=== PATIENT | female | born 1995 | race Caucasian/White ===

== ENCOUNTER → 2020-09-11 20:08 | Outpatient (ROUT) | payer OTHER, MEDICAID, SELFPAY ==
[2020-09-11 21:49] LABS: GTT (PREG) 1 Hour PP 50gm Dose 46 mg/dL (76-139)
[2020-09-14 19:36] LABS: AFP, Serum 23.2 ng/mL (.); Calc Gestational Age Ultrasound (.); Estriol, Free 0.57 ng/mL (.); Inhibin A, Dimeric 188.49 pg/mL (.); Inhibin A, MoM 1.17 (.); Maternal Weight 181 lbs (.); Number of Fetuses No (.); OSBR Risk 1 IN 10000 (.); Results Report (.); Test Results *Screen Negative* (.); hCG, MoM 0.97 (.); hCG, Serum 48758 mIU/mL (.)
== END ==
PROVIDERS: Visit Provider Nurse Practitioner Obstetrics & Gynecology
DX: Z34.90 Encounter for supervision of normal pregnancy, unspecified, unspecified trimester (principal); O99.212 Obesity complicating pregnancy, second trimester; Z36.0 Encounter for antenatal screening for chromosomal anomalies; Z36.1 Encounter for antenatal screening for raised alphafetoprotein level; Z13.1 Encounter for screening for diabetes mellitus; Z3A.15 15 weeks gestation of pregnancy
CPT/HCPCS: 82105; 82677; 82950; 84702; 86336

== ENCOUNTER → 2020-10-15 12:03 | Outpatient (CLI) | payer OTHER, MEDICAID, SELFPAY ==
--- NOTE | 2020-10-15 12:05 | DI.US.S_ITS ---
PROCEDURE: US OB >= 14 WEEKS FETUS INDICATIONS: ANATOMY SCAN OUTSIDE/PRIOR DATING DATA: Last menstrual period (LMP): 05/28/2020. LMP-based estimated date of delivery (SERAFIN): 03/04/2021 . First dating scan (date and location): 10/15/2020 . Estimated date of delivery (SERAFIN) from first dating scan: 03/02/2021 . TECHNIQUE: Real-time scanning was performed of the fetus, with image documentation and biometric measurements. Endovaginal scanning: No COMPARISON: None. FINDINGS: General: A single living intrauterine gestation is present. Presentation: Vertex. Placenta: Placental position is posterior , without previa. Amniotic fluid index: 9.2 cm, normal range is 5-24 cm. heart rate: 153 beats per minute. Maternal cervical canal: 5.5 cm long. Normal lower limit is 2.5 cm. biometrics: Biparietal diameter: 19 weeks 3 days Head circumference: 20 weeks Abdominal circumference: 19 weeks 6 days Femur length: 21 weeks 6 days Estimated gestational age from initial scan: 20 weeks Composite gestational age from present scan: 20 weeks 2 days Estimated weight and percentile: 366 g; 80th percentile Measurement variability for biometric dating: +/- 7 days from 14 weeks to 15 weeks 6 days gestation, +/- 10 days from 16 weeks to 21 weeks 6 days gestation, +/- 2 weeks from 22 weeks to 27 weeks 6 days gestation, +/- 3 weeks for 28 weeks gestation or later. weight reference: 4500 g or EFW >90/95% is considered macrosomia or large for gestational age. EFW <10% is small for gestational age. EFW 5% or less is considered intra-uterine growth restriction. Anatomic survey: Neuro: Ventricles are non-dilated at less than 10 mm. Cisterna magna is normal at 3-11 mm. Cerebellum is normal in size and morphology. Nuchal skin fold: Normal at less than 6 mm between 14-21 weeks gestational age. Face: Nose and lips, facial profile are normal. Spine: No evidence for spina bifida. Heart: Suboptimally visualized. Diaphragm: Diaphragm is intact. Stomach: Left-sided stomach is present. Kidneys: No hydronephrosis. Normal is less than 5 mm in 2nd trimester, less than 7 mm in 3rd trimester. Cord: 3-vessel cord has orthotopic insertion. Bladder: Normal in size. Extremities: All 4 extremities identified. IMPRESSION: 1. Normal interval growth. 2. heart suboptimally visualized; otherwise normal anatomic survey . Follow-up recommended. Dictated by: Froylan WOODRUFF Interpreted: Yenny Schreiber MD on 10/15/2020 at 13:31 Approved by: Yenny Schreiber M.D. on 10/15/2020 at 13:54
== END ==
PROVIDERS: Referring Provider Nurse Practitioner Obstetrics & Gynecology; Visit Provider Nurse Practitioner Obstetrics & Gynecology
DX: Z36.89 Encounter for other specified antenatal screening (principal); Z3A.20 20 weeks gestation of pregnancy
CPT/HCPCS: 76811

== ENCOUNTER → 2020-10-25 14:45 | Outpatient (CLI) | payer OTHER, MEDICAID, SELFPAY ==
--- NOTE | 2020-10-25 14:48 | DI.US.S_ITS ---
PROCEDURE: US OB LIMITED INDICATIONS: HEART NOT WELL VISUALIZED OUTSIDE/PRIOR DATING DATA: Last menstrual period (LMP): 05/28/2020. LMP-based estimated date of delivery (SERAFIN): 03/04/2021 . First dating scan (date and location): 10/15/2020 . Estimated date of delivery (SERAFIN) from first dating scan: 03/02/2021 . TECHNIQUE: Real-time scanning was performed of the fetus, with image documentation and biometric measurements. Endovaginal scanning: No COMPARISON: [facility], OB >= 14 WEEKS FETUS, 10/15/2020, 12:14. FINDINGS: General: A single living intrauterine gestation is present. Presentation: Vertex. Placenta: Placental position is posterior , without previa. Amniotic fluid index: 11.3 cm, normal range is 5-24 cm. heart rate: 153 beats per minute. Maternal cervical canal: 4.4 cm long. Normal lower limit is 2.5 cm. Estimated gestational age from initial scan: 21 weeks 5 days. Normal four-chamber heart. Cardiac outflow tracts not well seen. IMPRESSION: 1. Single living IUP redemonstrated and today's exam demonstrating normal appearance of the four-chamber heart and cardiac outflow tracts are again suboptimally visualized.. Dictated by: Froylan Henry [facility] Interpreted: Yenny Schreiber MD on 10/25/2020 at 15:47 Approved by: Yenny Schreiber M.D. on 10/25/2020 at 16:50
== END ==
PROVIDERS: Referring Provider Nurse Practitioner Obstetrics & Gynecology; Visit Provider Nurse Practitioner Obstetrics & Gynecology
DX: Z36.2 Encounter for other antenatal screening follow-up (principal); Z3A.21 21 weeks gestation of pregnancy
CPT/HCPCS: 76815

== ENCOUNTER → 2020-11-20 07:50 | Outpatient (CLI) | payer OTHER, MEDICAID, SELFPAY ==
[2020-11-20 08:48] LABS: Hematocrit 34.7 % (36-46); Hemoglobin 11.6 g/dL (12.0-16.0); Mean Corpuscular HGB Conc 33.5 % (30-36); Mean Corpuscular Hemoglobin 31.1 PG (26-34); Mean Corpuscular Volume 92.8 fL (80-100); Platelet Count 206 X10^3/uL (150-400); Red Blood Cell Count 3.74 X10^6/uL (4.0-5.2); White Blood Cell Count 13.8 X10^3/uL (4.5-11.0)
[2020-11-20 09:56] LABS: Glucose 1 Hour 122 mg/dL (70-170)
[2020-11-20 10:35] LABS: Glucose Tol Interpretation INTERPRETATION
[2020-11-20 11:19] LABS: Glucose 2 Hour 87 mg/dL (70-140)
[2020-11-20 17:58] LABS: Glucose Fasting 85 mg/dL (70-100)
== END ==
PROVIDERS: Referring Provider Nurse Practitioner Obstetrics & Gynecology; Visit Provider Nurse Practitioner Obstetrics & Gynecology
DX: Z34.90 Encounter for supervision of normal pregnancy, unspecified, unspecified trimester (principal); Z13.1 Encounter for screening for diabetes mellitus; Z3A.26 26 weeks gestation of pregnancy
CPT/HCPCS: 36415; 82951; 82952; 85027

== ENCOUNTER → 2021-02-07 19:08 | Outpatient (ROUT) | payer OTHER, MEDICAID, SELFPAY | PROVIDERS: Visit Provider Nurse Practitioner Obstetrics & Gynecology | DX: Z34.90 Encounter for supervision of normal pregnancy, unspecified, unspecified trimester (principal); Z36.85 Encounter for antenatal screening for Streptococcus B; Z3A.36 36 weeks gestation of pregnancy | CPT/HCPCS: 87081 ==

== ENCOUNTER 2021-03-01 00:36 | Inpatient (IN) | payer OTHER, MEDICAID, SELFPAY ==
--- NOTE | 2021-03-01 00:54 | PM.OBHP.1 ---
OB HPI Date/Time Date of admission: 03/01/21 Date Patient Seen: 03/01/21 Time Patient Seen: 00:45 History of Present Condition Chief complaint: Evalualtion of labor : 2 Para: 1 Estimated Date of Delivery: 03/04/21 Estimated Gestational Age (weeks): 39.4 Narrative: Prisca Zarate is a 25 year old female @ 39w4d by LMP and early US who presents for evaluation of labor. Has been feeling contractions all day that got strong around 9:30pm. No vaginal bleeding or leaking of fluid. Uncomplicated care w/ CNM. Supportive partner is at her side. Desires epidural AMANDO. History of Present care: good care, initiated at week # (5), number of visits (10) and pounds weight gain (-12) Dating criteria: LMP confirmed by 1st trimester US Ultrasounds: normal mid trimester US Obstetrical complications: none Medical complications: none Preadmission Labs Blood type: A (+) positive -: Antibody screen: negative, GBS status: negative, HBsAG: negative, HIV: negative and RPR/VDLR: negative -: Chlamydia screen: not detected and Gonorrhea screen: not detected -: Rubella: immune HCT: 34.7 HCAB: negative Quad screen: Normal Narrative: 2hr gtt: 85/122/87 Prior (ies) History: 09/04/2019: NSVB @ 39w6d, 15hr labor, 7#, male, Hector, no complications Evaluation Evaluation Baseline heart rate: 140 Variability: Moderate (11-25) monitor accelerations: Present Monitor Decelerations: Absent Contraction Frequency (minutes): 3 Uterine Contraction Intensity: Moderate Status: Category l Cervical dilation (cm): 6 Cervical effacement (%): 90 station: -2 PFSH Medical History (Updated 03/01/21 @ 01:05 by Aye Evans CNM) Depression Polycystic ovarian syndrome Surgical History (Updated 03/01/21 @ 01:05 by Aye Evans CNM) Hx of tonsillectomy Social History (Updated 03/01/21 @ 01:06 by Aye Evans CNM) marital status: unmarried,living together number of children: 1 household members: significant other and children lives independently: Yes caregiver/support person: No housing: apartment education level: high school occupational status: unemployed Meds Home Medications and Allergies Home Medications Medication Instructions Recorded Confirmed Type bupropion HCl 150 mg 24 hr tablet, mg PO 03/01/21 History extended release Allergies Allergy/AdvReac Type Severity Reaction Status Date / Time No Known Drug Allergies Allergy Verified 03/01/21 01:07 Review of Systems Review of Systems ROS: Yes All systems reviewed with the patient and are negative except as otherwise documented Exam Vital Signs (past 8 hours): BP 104/70, HR 74bpm, T 36.3C Temporal Chest Chest: normal inspection of the chest Resp Effort & Inspection: normal respiratory effort Auscultation: clear to auscultation bilaterally Cardio Rate: regular rate Rhythm: regular rhythm Heart Sounds: S1 normal and S2 normal Presentation: vertex Objective Labs Result Diagrams: 03/01/21 01:00 Assessment and Plan Assessment and Plan Assessment and Plan narrative: A: Term primipara Active labor Depression- stable on medication No indication for GBS prophylaxis Cat I FHR P: Admit, routine orders. Consulted anesthesia for epidural- will give a dose of Fentanyl as OC Anesthesia provider is currently in the OR. Continuous labor support. Reassess in 4 hours or sooner, PRN.
[2021-03-01 00:55] VITALS: BP 104/70
[2021-03-01] MEDS: LACTATED RINGERS 1,000 ML 100 ML IV ×2 (01:19→04:06)
[2021-03-01] MEDS: fentaNYL 100 MCG/2 ML INJ (01:19)
[2021-03-01 01:53] LABS: Add Manual Diff / Slide Review NO; Basophils Absolute Auto 0 /uL (0-100); Basophils Percent Auto 0.3 % (0-2); Eosinophils Absolute Auto 100 /uL (0-450); Eosinophils Percent Auto 0.7 % (2-4); Hematocrit 33.5 % (36-46); Hemoglobin 11.2 g/dL (12.0-16.0); Lymphocytes Absolute Auto 3100 /uL (1100-4500); Lymphocytes Percent Auto 25.6 % (25-40); Mean Corpuscular HGB Conc 33.5 % (30-36); Mean Corpuscular Hemoglobin 29.6 PG (26-34); Mean Corpuscular Volume 88.4 fL (80-100); Monocytes Absolute Auto 700 /uL (0-900); Monocytes Percent Auto 6.1 % (3-14); Neutrophils Absolute Auto 8200 /uL (1500-7000); Neutrophils Percent Auto 67.3 % (50-75); Platelet Count 190 X10^3/uL (150-400); Red Blood Cell Count 3.79 X10^6/uL (4.0-5.2); Red Cell Distribution Width 13.4 % (11.6-14.8); White Blood Cell Count 12.1 X10^3/uL (4.5-11.0)
[2021-03-01 01:59] LABS: COVID19 - ADMIT (NP swab/PCR) Negative (Negative)
--- NOTE | 2021-03-01 02:29 | P.PCN_ITS ---
Regional Block Pre-procedure Procedure: Continuous Lumbar Epidural for L&D Attending OB provider: Aye Evans PMH/ROS narrative: term labor, no complications Labs: Hct 33.5 % (36-46) L 03/01/21 01:00 Plt Count 190 X10^3/uL (150-400) 03/01/21 01:00 Medications: Current Medications Generic Name Dose Route Start Last Admin Trade Name Freq PRN Reason Stop Dose Admin Calcium Carbonate 1,000 mg 03/01/21 00:50 Calcium Carbonate 500 Mg Tab PO Q2HR PRN Dyspepsia Carboprost Tromethamine 250 mcg 03/01/21 00:50 Carboprost 250 Mcg/Ml Ampul IM Q90M PRN Bleeding Fentanyl 100 mcg 03/01/21 00:50 Fentanyl 100 Mcg/2 Ml Inj IV Q1H PRN Pain, Severe (7-10) Lactated Ringer's 1,000 mls @ 100 mls/hr 03/01/21 01:00 03/01/21 01:19 Lactated Ringers IV 100 mls/hr CONT JOHN Administration Oxytocin/Lactated Ringer's 30 unit in 500 mls @ 200 mls/hr 03/01/21 00:50 Oxytocin Premix IV CONT PRN Bleeding Protocol Tranexamic Acid 1,000 mg/ 100 mls @ 200 mls/hr 03/01/21 00:50 Sodium Chloride IV NOW PRN Bleeding Methylergonovine Maleate 0.2 mg 03/01/21 00:50 Methylergonovine 0.2 Mg Tablet PO Q6HR PRN Heavy Bleeding Methylergonovine Maleate 0.2 mg 03/01/21 00:50 Methylergonovine 0.2 Mg/Ml Vial IM NOW PRN Bleeding Misoprostol 800 mcg 03/01/21 00:50 Misoprostol 200 Mcg Tablet [place] NOW PRN Bleeding Misoprostol 1,000 mcg 03/01/21 00:50 Misoprostol 200 Mcg Tablet [place] NOW PRN Bleeding Misoprostol 400 mcg 03/01/21 00:50 Misoprostol 200 Mcg Tablet SL NOW PRN Bleeding Naloxone HCl 0.2 mg 03/01/21 00:50 Naloxone 0.4 Mg/Ml Vial IV Q2MIN PRN Opiate Reversal Ondansetron HCl 4 mg 03/01/21 00:50 Ondansetron 4 Mg/2 Ml Inj IV Q4HR PRN Nausea And Vomiting Oxytocin 10 unit 03/01/21 00:50 Oxytocin 10 Unit/Ml Vial IM NOW PRN Bleeding Allergies: Allergies Allergy/AdvReac Type Severity Reaction Status Date / Time No Known Drug Allergies Allergy Verified 03/01/21 01:07 Procedure Insertion date: 03/01/21 Insertion time: 02:00 Prep/Local: betadine x3 and 1% lidocaine Interspace: L3-4 Needle: 18 gauge Hustead (CSE: 27g Pencan through Hustead, clear CSF, 0.75mL 0.25% MPF bupiv) Loss of resistance with: saline NAWAF at (cm): 5 Catheter placed at SKIN (cm): 11 Catheter in SPACE (cm): 6 Insertion: No CSF, No Blood, No Paresthesia with insertion, No Paresthesia with injection and No Test dose reaction Initial Medications TEST DOSE: 1.5% lidocaine with epinephrine 1:200k (mL): 3 BOLUS DOSE (mL): 3 BOLUS DOSE med: other (infusate) Infusion INFUSION: 0.125% bupivacaine and with fentanyl 2 mcg/mL Initial rate (mL/hr): 8 Subsequent interventions: approx 0250, 5mL 0.25%, 5mL 2% chloroprocaine, no relief. Block level tested with cold sensation, no block. Catheter secure and at 11cm. Pulled and replaced: Seated, sterile prep/drape with betadine x 3. Lido local skin wheal L4-5, 18g Hustead to clean NAWAF with saline at 5cm, 27g Pencan passed through Hustead, clear CSF, 1mL 0.25% MPF bupivacaine, catheter inserted to 10cm (5cm in space), no paresthesias, no heme. Test dose 3mL 1.5% lido with epi. No reaction. Infusion resumed at 8mL/h. Good analgesia. at 0422 without further int ervention. Post-procedure Anesthesia time START: 01:52 Anesthesia time END: 04:22 Post-procedure Anesthesia Assessment: Yes CV function: HR/BP stable, Yes Resp function: RR/sat/airway adequate, Yes Mental status appropriate and No Anesthesia complications
--- NOTE | 2021-03-01 04:41 | P.PCNOB_ITS ---
Events: Meconium Stained Fluid (noted at the ) Labor & Delivery Delivery date: 03/01/21 Intrapartal Events: None Cervical ripening method: none Induction method: none Delivery augmentation: rupture of membranes Delivery monitor: external FHT and external uterine Route of delivery: L&D Laceration Description: None Estimated blood loss (mL): 450 Anesthesia Type: Epidural Complications: Epidural replaced 1 hour prior to Narrative: Prisca labored well and made steady cervical change. Shortly after achieving complete pain relief with second epidural, Prisca began to feel increasing rectal pressure and was C/C/+2. Coaching to slow effective maternal pushing led to NSVB of a vigorous baby girl in EDIN position over an intact perineum. There was no nuchal cord and the shoulders delivered without additional maneuvers. Challis was placed on maternal abdomen for drying and skin to skin. 30 units of pitocin in 500mL LR was started at 250mL/hr for AMTSL. After cessation of pulsation, the cord was double clamped by CNM and cut by FOB. Gentle cord traction with brisk bleeding led to spontaneous, Schultze delivery of an apparently intact placenta, membranes and 3VC. Fundus immediately firm and bleeding minimal. QBL 450mL. Both mother and baby stable and skin to skin as I left the room. Baby 1: Infant gender: Female Presentation: vertex Position: Left Occiput Anterior Placenta delivery description: Spontaneous Cord Vessel Description: 3 Vessels score (1 min): 8 score (5 min): 9 weight: 2.926 kg Plan for aftercare: Routine care
[2021-03-01] MEDS: KETOROLAC 30 MG/ML VIAL IV (06:30)
[2021-03-01] MEDS: IBUPROFEN 600 MG TABLET PO ×2 (12:18→18:48)
[2021-03-01] MEDS: LANOLIN OINT 7 GM 1 APPLIC TOP (15:44)
[2021-03-01] MEDS: ACETAMINOPHEN 325 MG TABLET 650 MG PO (18:47)
[2021-03-02] MEDS: ACETAMINOPHEN 325 MG TABLET 650 MG PO ×2 (00:47→06:51)
[2021-03-02] MEDS: IBUPROFEN 600 MG TABLET PO ×2 (00:47→06:51)
--- NOTE | 2021-03-02 08:08 | PM.OBDS.1 ---
Discharge Providers Provider Date of admission: 03/01/21 00:36 Discharge Date: 03/02/21 Consults: 03/02/21 04:38 Consult to Rehabilitation Construction Specialist Routine Comment: Discharge provider: Aye Evans CNM Summary Hospital Course Date Patient Seen: 03/02/21 Time Patient Seen: 08:08 Diagnoses: O80.0 (vaginal ) Hospital Course: Prisca is voiding ambulating and independently. Showered and dressed in her own clothes. Tolerating a general diet. Minimal pain is well controlled w/ ibuprofen/Tylenol. Bleeding is light, no clots. Eager for discharge to home today. Partner remains present and supportive. Peripartum Data Infant Delivery Method: Natural Vaginal Laceration Description: None Episiotomy description: None complications: none 1: Gender: Female Disposition of : home Discharge Diagnosis (1) Encounter for full-term uncomplicated delivery: Start Date: 03/01/21 Start Time: 04:22 Status: Acute Status at Discharge Cognitive/behavioral status at discharge: oriented and calm Functional status at discharge: independent ambulation Overall status at discharge: patient is progressing back to baseline Time Spent with Patient Time attestation: Total time spent providing and/or coordinating discharge services: Time spent: Less than 30 minutes Specific discharge activities: pelvic rest x 6 weeks Objective Labs Result Diagrams: 03/01/21 01:00 Exam Vital Signs (past 8 hours): BP 108/71mmHg, HR 74bpm, RR 20/min, T 98.6F Temporal Other: Fundus firm @ U-1, lochia scant Discharge Plan Discharge Plan Patient Disposition: Home Discharge orders & Medications Prescriptions: New ibuprofen 600 mg Tablet 600 mg PO Q6HR PRN (Reason: Pain, Mild (1-3)) 14 Days Qty: 60 RF: 0 Continued bupropion HCl 150 mg tablet extended release 24 hr PO RF: 0 Follow up/Referrals: Aye Evans CNM [Advanced Toxicologist] - (Follow-up 03/15/21 @ 1115 by Telehealth Follow-up 04/12/21 @ 1045 in office) Diet/Activity/Treatments Diet: Regular Activity: pelvic rest x 6 weeks Skin/Wound/Dressing Care Report to your healthcare provider any signs of infection, such as:: chills, fever, increased pain, unusual drainage and unusual redness Visit Report/Discharge Packet Instructions: DI for Depression
[2021-03-02 08:53] VITALS: BP 104/70; PULSE 70; RESP 18; TEMP 36.7
== END 2021-03-02 11:45 | disposition home or self-care (01) | DRG 560 ==
PROVIDERS: Admitting Provider Nurse Practitioner Obstetrics & Gynecology; Referring Provider Nurse Practitioner Obstetrics & Gynecology; Visit Provider Nurse Practitioner Obstetrics & Gynecology
DX: O77.0 Labor and delivery complicated by meconium in amniotic fluid (principal); Z3A.39 39 weeks gestation of pregnancy; Z37.0 Single live birth; Z20.822 Contact with and (suspected) exposure to COVID-19
CPT/HCPCS: 01967; 36415; 59050; 85025; 86850; 86900; 86901; 87635; C9803; J1885; J3010

== ENCOUNTER → 2021-05-19 09:56 | Outpatient (CLI) | payer OTHER, MEDICAID, SELFPAY ==
--- NOTE | 2021-05-19 | DI.US.S_ITS ---
PROCEDURE: US PELVIC COMPLETE INDICATIONS: SPOTTING SINCE VAGINAL DELIVERY IN FEBRUARY TECHNIQUE: Real-time scanning was performed of the pelvic organs, with image documentation. Additional endovaginal scanning was necessary due to incomplete visualization of the adnexal and endometrial structures by transabdominal scanning. COMPARISON: None. FINDINGS: Uterus: Uterus is normal in size at 7.3 x 6.6 x 2.7 cm. The endometrium measures 1-2 mm in combined thickness. Ovaries: Right ovary measures 2.5 x 1.6 x 1.5 cm. There are punctate nonspecific echogenic foci seen within the right ovary. Left ovary measures 3.0 x 1.8 x 1.6 cm and also demonstrates hyperechoic foci measuring up to 8 mm. Other: No pathologic free abdominal or pelvic fluid. IMPRESSION: No specific sonographic criteria for retained products of conception. Nonspecific hyperechoic foci involving both ovaries, technically indeterminate. The clinical significance is unknown. If clinically warranted, continued surveillance with ultrasound could be performed to document stability Dictated by: Nicho Camejo M.D. on 05/19/2021 at 11:35 Approved by: Nicho Camejo M.D. on 05/19/2021 at 11:46
== END ==
PROVIDERS: Referring Provider Nurse Practitioner Obstetrics & Gynecology; Visit Provider Nurse Practitioner Obstetrics & Gynecology
DX: N93.9 Abnormal uterine and vaginal bleeding, unspecified (principal)
CPT/HCPCS: 76830; 76856

== ENCOUNTER 2021-06-19 23:36 | Emergency (ER) | payer OTHER, MEDICAID, SELFPAY ==
--- NOTE | 2021-06-19 23:45 | ED.ALLEREA ---
HPI - Allergic Reaction General Chief complaint: Urogenital-Female Stated complaint: IUD placement, heavy bleeding, severe cramps Time Seen by Provider: 06/19/21 23:37 Source: patient Mode of arrival: Ambulatory Limitations: no limitations History of Present Illness HPI narrative: This is a 26-year-old female comes emergency department with complaint of IUD placement earlier today. She has felt a sharp pain when it was initially placed in his continued to have cramping that feels like a contraction persistent since then. She states the pain is more on the right and midline than on the left. Was about 5:00 p.m. today. Patient has had some bleeding she has gone through 3 panty liner she states not thick pads. This is more bleeding than she was told was expected. She had ibuprofen at 5:00 p.m., she took some Tylenol at 7:00 p.m.. She has continued to have symptoms and came for evaluation. She is 4 months and has a history of PCOS. She is . She is on bupropion but no other daily medications. She has never had an IUD before. She denies any other medical issues. She had a vaginal delivery. She states she has been on control until recently but was having very irregular periods . No fevers. No back or flank pain. No nausea or vomiting. No issues with bowel movements or rectal bleeding. She has not had any dysuria urgency or frequency. She does not appreciate any vaginal discharge. She denies allergies to medications. Related Data Home Medications Medication Instructions Recorded Confirmed bupropion HCl 150 mg 24 hr tablet, mg PO 03/01/21 extended release Allergies Allergy/AdvReac Type Severity Reaction Status Date / Time No Known Drug Allergies Allergy Verified 03/01/21 01:07 Review of Systems Review of Systems ROS Unobtainable: All systems reviewed & are unremarkable except as noted in HPI and below Patient History Medical History Depression Polycystic ovarian syndrome Surgical History Hx of tonsillectomy Social History marital status: unmarried,living together number of children: 1 household members: significant other and children lives independently: Yes caregiver/support person: No housing: apartment education level: high school occupational status: unemployed Smoking Status: Current every day smoker Smoking Status: Current every day smoker Exam Narrative Exam Narrative: GENERAL: Alert and oriented x three, female in mild distress. HEENT: Head normocephalic, atraumatic, EOMI, pupils reactive, face symmetric, moist mucous membranes NECK: Supple, full range of motion CARDIOVASCULAR: Regular rate and rhythm without murmurs, rubs or gallops. RESPIRATORY: Breath sounds equal bilaterally, no wheezes rales or rhonchi. ABDOMEN: Soft, nontender. Normoactive bowel sounds all 4 quadrants. No guarding or rebound, rigidity, no mass : No CVA tenderness Female: external vaginal exam is normal, small amount of brownish red blood in the vaginal canal, no active bleeding, no discharge, patient does have some tenderness with manipulation of the cervix but strings are present and from vaginal exam the IUD appears to be placed appropriately., patient cervix does tilt slightly to the right consistent with her reported history of more right-sided pain. Normal speculum exam, no adnexal tenderness/mass. Bimanual exam is normal, no enlarged uterus. Non-gravid. EXTREMITIES: Normal range of motion, no clubbing or edema. Neurovascularly intact NEUROLOGICAL: Cranial nerves II through XII grossly intact. Moving all extremities SKIN: Warm, dry, no petechiae, no rashes or lesions. Initial Vital Signs Initial Vital Signs: Vital Signs Temperature 98.0 F 06/19/21 23:46 Pulse Rate 98 H 06/19/21 23:46 Respiratory Rate 16 06/19/21 23:46 Blood Pressure 125/92 H 06/19/21 23:46 Pulse Oximetry 99 06/19/21 23:46 Procedures [facility] Procedure Name of Procedure: IUD removal Location: Cervix Technique/Description of procedure performed: Verbal consent was obtained from the patient. We did discuss risks versus benefits. Patient had pelvic exam with speculum with cervical os visualized with strings. Ring forceps were used to grasp the strings and gentle steady pressure was applied for about 5 seconds and the IUD was extracted without any additional complications. It does appear to be present in its entirety. Patient already had some mild vaginal bleeding and does not appear to have any increased. Patient tolerated the procedure well. Patient tolerated procedure: Well Complications: none Course Orders Ordered: ED Orders 11/04/21 23:55 US pelvic complete Stat Discontinued Medications Ketorolac Tromethamine (Ketorolac 30 Mg/Ml Vial) 30 mg IM NOW ONE Stop: 06/19/21 23:56 Last Admin: 06/20/21 00:06 Dose: 30 mg Documented by: CHRISTIAN Vital Signs Vital signs: Vital Signs - 8 hr 06/19/21 23:46 Temperature 98.0 F Pulse Rate 98 H Respiratory Rate 16 Blood Pressure 125/92 H Pulse Oximetry 99 MDM - Allergic Reaction Imaging Data US - OPERATIONAL REVIEW SERGEANT: Radiologist's Impression: [address] [address] Ultrasound Report Signed Patient: Prisca Zarate MR#: [id number] : 1995 Acct:[id number] Age/Sex: 26 / F Date of Service: 06/19/21 Loc: ED Accession Number: [id number] ?? Procedure: US pelvic complete Ordering Provider: Lisbeth Boyer D.O. PROCEDURE:? US PELVIC COMPLETE ? INDICATIONS:? IUD placed today, sharp pain continuing since. ? TECHNIQUE:? Real-time scanning was performed of the pelvic organs, with image documentation.? Additional endovaginal scanning was necessary due to incomplete visualization of the adnexal and endometrial structures by transabdominal scanning.? ? COMPARISON:? [facility], PELVIC COMPLETE, 05/19/2021, 10:07. ? FINDINGS:? ?? Uterus:? Uterus is normal in size at 7.9 x 4 point cm.? The endometrium measures 8 mm in combined thickness.? Intrauterine device is noted within central endometrial cavity however the upper portion of the endometrial device is not in its normal configuration .? No endometrial mass or fluid is seen.? No discrete uterine fibroid.? Small nabothian cysts are noted in endocervical canal. ? Ovaries:? Right ovary measures 2.9 x 1.8 x 1.5 cm in size and is within normal limits.? Left ovary measures 3 x 1.9 x 1.5 cm in size.? Previously noted 8 x 5 x 3 mm homogeneously hyperechoic structure in left ovary with internal vascularity is again seen and is unchanged in size and appearance. ? Other: ? No pathologic free abdominal or pelvic fluid. ? IMPRESSION:? 1. Intrauterine device is noted in its central however it does not assume its normal configuration, concerning for possible mal-deployed IUD.? No endometrial mass or fluid is seen.? No discrete uterine fibroids. 2. Normal appearing right ovary on the current study.? Stable appearing sub cm hyperechoic structure in left ovary and is of indeterminate significance.? No evidence of ovarian torsion. 3. No pelvic free fluid.? ? Dictated by: Manuelito Thurston M.D. on 06/20/2021 at 1:32 ? ? Approved by: Manuelito Thurston M.D. on 06/20/2021 at 1:38? MDM Narrative Medical decision making narrative: This is a 26-year-old female who had IUD placed today which states she has been having more bleeding than anticipated cramping persistently. She had some Toradol which has helped her plain. On initial exam strings appear place with IUD appears visually in place but ultrasound was ordered. There does appear to be an IUD but it does not have the typical T shape and suspected that it may have not deployed properly. Discussed with patient would likely need to be replaced regardless but if she prefers to follow up with her provider that would be perfectly acceptable. She prefers to attempt to remove it here in the department. Id was successfully removed. Patient tolerated the procedure well. She has follow-up tomorrow if needed with her director product placed her IUD. Discharge Plan Departure Patient Disposition: Home Clinical Impression: IUD mechanical complication Activity Restrictions/Additional Instructions: Follow-up with your provider. Discussed with her provider the appropriate time frame to replace your IUD. It appears there was a mechanical malfunction and I did remove it today in its entirety. Today on your ultrasound the IUD was seen but the arms of the IUD had not open and were not present as they are typically seen on imaging and suspected that it did not deploy properly when placed. You may continue with ibuprofen up to 800 mg every 8 hours and/or Tylenol up to a 1000 mg every 8 hours. Please return for fevers, lightheadedness, new worsening abdominal, back or flank pain, vomiting, worsening bleeding Prescriptions: No Action bupropion HCl 150 mg tablet extended release 24 hr PO RF: 0
[2021-06-19 23:46] VITALS: BP 125/92; PULSE 98; RESP 16; TEMP 36.7; O2SAT 99; BMI 25.7
--- NOTE | 2021-06-19 23:55 | DI.US.S_ITS ---
PROCEDURE: US PELVIC COMPLETE INDICATIONS: IUD placed today, sharp pain continuing since. TECHNIQUE: Real-time scanning was performed of the pelvic organs, with image documentation. Additional endovaginal scanning was necessary due to incomplete visualization of the adnexal and endometrial structures by transabdominal scanning. COMPARISON: [facility], , US PELVIC COMPLETE, 05/19/2021, 10:07. FINDINGS: Uterus: Uterus is normal in size at 7.9 x 4 point cm. The endometrium measures 8 mm in combined thickness. Intrauterine device is noted within central endometrial cavity however the upper portion of the endometrial device is not in its normal configuration . No endometrial mass or fluid is seen. No discrete uterine fibroid. Small nabothian cysts are noted in endocervical canal. Ovaries: Right ovary measures 2.9 x 1.8 x 1.5 cm in size and is within normal limits. Left ovary measures 3 x 1.9 x 1.5 cm in size. Previously noted 8 x 5 x 3 mm homogeneously hyperechoic structure in left ovary with internal vascularity is again seen and is unchanged in size and appearance. Other: No pathologic free abdominal or pelvic fluid. IMPRESSION: 1. Intrauterine device is noted in its central however it does not assume its normal configuration, concerning for possible mal-deployed IUD. No endometrial mass or fluid is seen. No discrete uterine fibroids. 2. Normal appearing right ovary on the current study. Stable appearing sub cm hyperechoic structure in left ovary and is of indeterminate significance. No evidence of ovarian torsion. 3. No pelvic free fluid. Dictated by: Manuelito Thurston M.D. on 06/20/2021 at 1:32 Approved by: Manuelito Thurston M.D. on 06/20/2021 at 1:38
[2021-06-20] MEDS: KETOROLAC 30 MG/ML VIAL IM (00:06)
== END 2021-06-20 02:11 | disposition home or self-care (01) ==
PROVIDERS: Emergency Provider Emergency Medicine
DX: T83.32XA Displacement of intrauterine contraceptive device, initial encounter (principal); N93.9 Abnormal uterine and vaginal bleeding, unspecified
CPT/HCPCS: 29705; 58301; 76830; 76856; 96372; 99283; J1885

== ENCOUNTER → 2021-09-24 14:45 | Outpatient (CLI) | payer OTHER, MEDICAID, SELFPAY ==
--- NOTE | 2021-09-24 | DI.US.S_ITS ---
PROCEDURE: US PELVIC COMPLETE INDICATIONS: VERIFY IUD PLACEMENT. STRINGS NOT FELT IN OS. TECHNIQUE: Real-time scanning was performed of the pelvic organs, with image documentation. Additional endovaginal scanning was necessary due to incomplete visualization of the adnexal and endometrial structures by transabdominal scanning. COMPARISON: [facility], , US PELVIC COMPLETE, 06/20/2021, 0:41. FINDINGS: Uterus: Uterus is anteverted and normal in size at 6.7 x 4.8 x 2.5 cm. The myometrium is homogeneous. The endometrium measures 0.1 cm combined thickness. No intrauterine device is seen within the uterus. No displaced intrauterine device is seen in the visualized portions of the bilateral adnexa. Ovaries: The right ovary measures 2.9 x 2.2 x 1.8 cm, with a calculated ovarian volume of 6 cc. The left ovary measures 3.3 x 1.7 x 1.6 cm, with a calculated ovarian volume of 5 cc. The ovaries have a normal sonographic appearance. Less than 12 follicles can be seen in each ovary. No adnexal masses are seen. Other: No pathologic free abdominal or pelvic fluid. IMPRESSION: Intrauterine device is not visualized within the uterus or cervix, and is not seen within the adnexal tissue sonographically. Recommend correlation with pelvic radiographs, which are currently scheduled to be performed the same day. We strive to produce accurate, complete, and clear reports of imaging services. To assist us in improving patient care, this report was composed using standard report templates and voice recognition software. Therefore, it may contain abnormal punctuation, insertions and/or omissions. Occasional wrong-word or sound-alike substitutions may occur. Though we review the report and make efforts to correct it, we do recommend that the report be read carefully in proper context to recognize any text inaccuracies. Dictated by: Ricky Floyd M.D. on 09/24/2021 at 15:37 Approved by: Ricky Floyd M.D. on 09/24/2021 at 15:45
--- NOTE | 2021-09-24 15:30 | DI.RAD.S_ITS ---
PROCEDURE: XR PELVIS 1-2V INDICATIONS: VERIFY IUD PLACEMENT TECHNIQUE: 1 view(s) of the pelvis acquired. COMPARISON: [facility], PELVIC COMPLETE, 06/20/2021, 0:41. [facility], OB LIMITED, 10/25/2020, 14:54. [facility], PELVIC COMPLETE, 09/24/2021, 14:53. FINDINGS: Bones: No fractures or dislocations. No suspicious bony lesions. Soft tissues: There is an IUD in transverse orientation in the lower pelvis. Visualized bowel gas pattern is normal. No suspicious soft tissue calcifications. IMPRESSION: 1. An IUD in transverse orientation in the lower pelvis. On the comparison ultrasound, no IUD is identified within the uterine cavity. The finding is highly suspicious for IUD perforating through uterus. The result was discussed with Dr. Evans. Dictated by: Aneta Orellana M.D. on 09/24/2021 at 15:51 Approved by: Aneta Orellana M.D. on 09/24/2021 at 16:03
== END ==
PROVIDERS: PCP Nurse Practitioner Obstetrics & Gynecology; Referring Provider Nurse Practitioner Obstetrics & Gynecology; Visit Provider Nurse Practitioner Obstetrics & Gynecology
DX: Z30.431 Encounter for routine checking of intrauterine contraceptive device (principal); T83.32XA Displacement of intrauterine contraceptive device, initial encounter
CPT/HCPCS: 72170; 76830; 76856

== ENCOUNTER → 2021-10-08 15:12 | Outpatient (CLI) | payer OTHER, MEDICAID, SELFPAY ==
[2021-10-08 16:23] LABS: COVID19 -Nasal RAPID Negative (Negative)
== END ==
PROVIDERS: PCP Nurse Practitioner Obstetrics & Gynecology; Visit Provider Obstetrics & Gynecology
DX: Z01.812 Encounter for preprocedural laboratory examination (principal); Z20.822 Contact with and (suspected) exposure to COVID-19
CPT/HCPCS: 87635; C9803

== ENCOUNTER 2021-10-09 14:55 | Day surgery (SDC) | payer OTHER, MEDICAID, SELFPAY ==
[2021-10-08 08:03] VITALS: BMI 28.3
[2021-10-09 15:15] VITALS: BP 101/67; PULSE 78; RESP 16; TEMP 36.7; O2SAT 100; BMI 28.3
[2021-10-09] MEDS: LACTATED RINGERS 1,000 ML 100 ML IV (15:48)
--- NOTE | 2021-10-09 16:22 | PM.PREOP ---
Pre-operative Note COVID-19 COVID-19 status: Negative Result date/Date tested (Pos, Neg/Pending): 10/08/21 Criteria for continued procedure: Possibility delay results in more complex future surgery or treatment Interval Note History & Physical reviewed/Exam performed by Physician: Yes Changes to H&P: No
--- NOTE | 2021-10-09 18:39 | SUR.PREOP ---
Pt decided to cancel surgery and left at 1800. Pt IV was taken out. Surgeon notified of cancellation of surgery. Pt is breast feeding and a emergent surgical case bumped her back another 2 hours. Pt has a 2 month old and child support investigator issues and was unable to stay.
== END 2021-10-09 18:00 | disposition home or self-care (01) ==
PROVIDERS: Referring Provider Specialist; Visit Provider Specialist
CPT/HCPCS: 81025

== ENCOUNTER → 2021-10-16 16:17 | Outpatient (CLI) | payer OTHER, MEDICAID, SELFPAY ==
[2021-10-16 19:05] LABS: COVID19 -Nasal RAPID POSITIVE (Negative)
== END ==
PROVIDERS: Visit Provider Specialist
DX: U07.1 COVID-19 (principal); Z20.822 Contact with and (suspected) exposure to COVID-19; Z01.812 Encounter for preprocedural laboratory examination
CPT/HCPCS: 87635; C9803

== ENCOUNTER → 2021-10-17 08:31 | Day surgery (SDC) | payer OTHER, MEDICAID, SELFPAY ==
[2021-10-15 13:27] VITALS: BMI 28.3
== END ==
PROVIDERS: Referring Provider Specialist; Visit Provider Specialist

== ENCOUNTER → 2021-11-14 16:42 | Outpatient (CLI) | payer OTHER, MEDICAID, SELFPAY ==
[2021-11-14 17:31] LABS: COVID19 -Nasal RAPID Negative (Negative)
== END ==
PROVIDERS: Visit Provider Specialist
DX: Z20.822 Contact with and (suspected) exposure to COVID-19; Z01.812 Encounter for preprocedural laboratory examination
CPT/HCPCS: 87635; C9803

== ENCOUNTER 2021-11-17 13:45 | Day surgery (SDC) | payer OTHER, MEDICAID, SELFPAY ==
[2021-11-12 12:04] VITALS: BMI 28.3
[2021-11-17] VITALS (12 sets, daily range): BP systolic 96–126; BP diastolic 42–70; PULSE 54–88; RESP 12–100; TEMP 35.9–36.4; O2SAT 18–100; BMI 28.3
[2021-11-17] MEDS: LACTATED RINGERS 1,000 ML 100 ML IV (14:33)
--- NOTE | 2021-11-17 16:21 | PM.PREOP ---
Pre-operative Note COVID-19 COVID-19 status: Negative Result date/Date tested (Pos, Neg/Pending): 11/14/21 Criteria for continued procedure: Continuing or worsening of significant or severe pain Interval Note History & Physical reviewed/Exam performed by Physician: Yes Changes to H&P: No
--- NOTE | 2021-11-17 16:22 | PM.GYNHP.1 ---
History of Present Illness History of Present Illness Narrative: Prisca Zarate is a 26 year old female it for removal of intra-abdominal IUD and placement of Anais in a IUD [facility] Medical History (Updated 11/17/21 @ 16:25 by Elizabeth Lopez MD) Depression Encounter for full-term uncomplicated delivery Polycystic ovarian syndrome Surgical History Hx of tonsillectomy Social History marital status: unmarried,living together number of children: 1 household members: significant other and children lives independently: Yes caregiver/support person: No housing: apartment education level: high school occupational status: unemployed Smoking Status: Current every day smoker alcohol intake: never Meds Home Medications and Allergies Home Medications Medication Instructions Recorded Confirmed Type bupropion HCl 150 mg 24 hr tablet, 300 mg PO DAILY tab 10/03/21 11/17/21 History extended release oxycodone-acetaminophen 5 mg-325 1 tab PO Q4-6H PRN #20 tab 10/03/21 11/17/21 Rx mg tablet Allergies Allergy/AdvReac Type Severity Reaction Status Date / Time No Known Drug Allergies Allergy Verified 11/17/21 14:07 Review of Systems Review of Systems Narrative: Patient is complaining of increasing abdominal pain with increasing cramping and spotting. She denies any chest pains or shortness of breath. When she mario COVID 1 month ago she just had kind of a dry cough lichen allergy cough. No fevers. Exam Vital Signs (past 8 hours): - 11/17/21 14:00 Temperature 97.0 F L Pulse Rate 80 Respiratory Rate 16 Blood Pressure 106/66 Pulse Oximetry 99 Oxygen Delivery Method Room Air Narrative Exam Narrative: Preoperative diagnosis:? Malpositioned IUD, intra-abdominal Planned procedure:? Laparoscopic removal of intra-abdominal IUD with placement of Kyleena IUD History of present illness:? Patient had a Mirena IUD placed June 19, 2021 the patient had pain and went to the emergency room where the IUD appeared to have not been deployed correctly and so it was removed.? Patient had a another Mirena IUD placed on 06/25/2021.? The patient did not have problems with bleeding or pain until she had intercourse in August and was able to change positions and alleviate pain.? She was seen and the IUD strings were not visualized.? The patient had an ultrasound that showed the IUD was not in her uterus but intra-abdominal.? She was advised to have laparoscopic removal.? Patient had trouble with the progesterone only control pills making her lockett.? This makes it unlikely she would tolerate Depo-Provera or Nexplanon.? Patient would like to try 1 more time to have the IUD placed at the time of her surgical removal of her inter abdominal IUD. Patient was scheduled to have a IUD removal but had her surgery delayed so was rescheduled. She did then tested positive for COVID. She had minimal symptoms. Although she is not 7 weeks post COVID infection and is not immunized her increasing pain and bleeding is concerning and delay may cause further harm. On physical exam: HEENT exam within normal limits.? Lungs are clear to auscultation percussion.? Heart is regular rate and rhythm no S3-S4 murmurs.? Abdomen is soft, nontender with no palpable organomegaly.? Pelvic exam not repeated. Extremities without edema and nontender. Consent form for laparoscopy removal of the IUD and placement of Kyleena IUD was reviewed with patient.? With risk of reaction to medication or anesthesia, infection, damage to internal structures such as bowel, bladder, ureters that could result in opening the abdomen to repair or additional surgery.? Consent form signed and questions answered.? Copy of consent forms offered to the patient.? Pre and postop instructions reviewed with the patient. PFSH Medical History?(Updated 10/03/21 @ 14:44 by Elizabeth Lopez MD) Assessment & Plan Assessment and plan (1) Malpositioned IUD: Qualifiers: Encounter type: initial encounter Qualified Code(s): T83.32XA - Displacement of intrauterine contraceptive device, initial encounter Status: Acute (2) Encounter for intrauterine device placement: Status: Acute Assessment & Plan narrative: Patient presents to the operating room for removal of intra-abdominal IUD and placement of Kyleena IUD COVID-19 COVID-19 status: Negative Result date/Date tested (Pos, Neg/Pending): 11/14/21 Time Spent With Patient Time with patient: less than 30 minutes Critical Care time: I spent a total of [] minutes of critical care time on this patient's care today; this time is exclusive of procedural time.
--- NOTE | 2021-11-17 16:27 | SUR.OPER ---
Lithotomy on padded OR bed, head on pillow, arms secured on padded arm boards at <90 degrees abduction. Legs secured in padded yellow fins stirrups.
[2021-11-17] MEDS: ACETAMINOPHEN 325 MG TABLET 975 MG PO (16:34)
[2021-11-17] MEDS: GABAPENTIN 300 MG CAPSULE PO (16:35)
--- NOTE | 2021-11-17 16:37 | SUR.PREOP ---
11/17/21 1635-Given preop po meds as ordered. Scop Patch held due to patient breast feeding per Dr Hilary Cantrell.
[2021-11-17] MEDS: BUPIVACAINE 0.5% (PF) 30 ML, EPINEPHrine 0.15 MG INJ (17:01)
--- NOTE | 2021-11-17 17:19 | SUR.OPER ---
Jose IUD Lot# [id number] placed 11/17
--- NOTE | 2021-11-17 17:27 | P.OP_ITS ---
Operative Date/Time/Diagnoses Date of procedure: 11/17/21 Time of procedure: 17:27 Pre-op diagnosis: Intra-abdominal IUD with placement Kyleena IUD Post-op diagnosis: same Procedure & Clinicians Procedure: Laparoscopy with removal of intra-abdominal IUD and placement of Kyleena IUD intrauterine Same procedure as scheduled: Yes Indications: Patient with IUD found intra-abdominal by x-ray and ultrasound Surgeon: Elizabeth Lopez Click Yes if Unassisted: Yes Anesthesia Type: General Operative Notes Findings: IUD can the lower abdominal wall with mild adhesions to the omentum. Normal exam under anesthesia. Kyleena IUD placed without difficulty Closure Type: primary Specimen(s): none sent Estimated Blood Loss (mL): 1 Blood products transfused: none Procedure in detail: Patient was brought to the operating room where she underwent general anesthe peggy. She was placed in low yellowfin stirrups and prepped and draped in usual sterile fashion. Pulsatile stockings were in place and functional. Warming was with James Hugger. The area of the incisions were injected with half percent Marcaine with epinephrine. An incision was made in the umbilicus with a scalpel and the Verres needle placed in the abdomen. Confirmation of correct placement of the needle was performed by withdrawing on the syringe and then allowing fluid to fall freely through the needle. The abdomen was insufflated to 4 L of CO2. A 5 mm trocar was placed under direct visualization. A 5 mm trochar was placed in the right lower quadrant under direct visualization after incising the skin. There did not appear to be any damage with placement of the trocars. The IUD was seen laying in the lower abdomen on the surface of the omentum. The IUD grasped and pulled up through the 5 mm trocar without difficulty. CO2 was allowed to escape from the abdomen. The trochars were removed. Skin was closed with 4-0 monocryl. A speculum was then placed in the vagina. A single-tooth tenaculum was placed on the anterior lip of the cervix. The uterus was sounded with a #2 dilator. The Kyleena IUD was placed into the uterus without difficulty. The IUD strings were cut to 4 cm. Patient went to recovery room in good condition. Complications: none Post-operative Condition: stable Disposition: same day surgery Plan for aftercare: Follow-up in 1 week for incision check.
[2021-11-17] MEDS: HYDROMORPHONE 2 MG INJ IV ×4 (17:42→18:06)
[2021-11-17] MEDS: ONDANSETRON 4 MG/2 ML INJ IV (17:44)
[2021-11-17] MEDS: OXYCODONE IR 5 MG TABLET PO ×2 (17:45→18:15)
== END 2021-11-17 18:30 | disposition home or self-care (01) ==
PROVIDERS: Referring Provider Specialist; Visit Provider Specialist
PROC: (CPT 49320; principal; 2021-11-17 15:45)
DX: T83.32XA Displacement of intrauterine contraceptive device, initial encounter (principal); Z30.430 Encounter for insertion of intrauterine contraceptive device; K66.0 Peritoneal adhesions (postprocedural) (postinfection)
CPT/HCPCS: 49329; 58300; 81025; J0171; J0330; J1100; J1170; J1885; J2250; J2405; J2704; J3010; J7296

== ENCOUNTER → 2023-01-05 15:07 | Outpatient (CLI) | payer OTHER, MEDICAID, SELFPAY ==
--- NOTE | 2023-01-05 | DI.US.S_ITS ---
PROCEDURE: US OB >= 14 WEEKS FETUS INDICATIONS: 20 WEEK ANATOMY SCAN OUTSIDE/PRIOR DATING DATA: Last menstrual period (LMP): July 30, 2022. LMP-based estimated date of delivery (SERAFIN): May 06, 2023. First dating scan (date and location): [facility] Estimated date of delivery (SERAFIN) from first dating scan: May 13, 2023 TECHNIQUE: Real-time scanning was performed of the fetus, with image documentation and biometric measurements. Endovaginal scanning: Not performed COMPARISON: [facility], , OB >= 14 WEEKS FETUS, 10/15/2020, 12:14 FINDINGS: General: A single living intrauterine gestation is present. Presentation: Transverse. Placenta: Placental position is anterior , without previa. Amniotic fluid index: 14.2 cm, normal range is 5-24 cm. Single deepest vertical pocket is 4.4 cm. heart rate: 140 beats per minute. Maternal cervical canal: 5.4 cm long. Normal lower limit is 2.5 cm. biometrics: Biparietal diameter: 5.1 cm, 21 weeks, 3 days Head circumference: 19.7 cm, 21 weeks, 6 days Abdominal circumference: 16.8 cm, 21 weeks, 5 days Femur length: 3.6 cm, 21 weeks, 4 days Clinically estimated gestational age: 22 weeks, 5 days Composite gestational age from present scan: 21 weeks, 5 days Estimated weight and percentile: 443 g, 8% Anatomic survey: Neuro: Ventricles are non-dilated at less than 10 mm. Cisterna magna is normal at 3-11 mm. Cerebellum is normal in size and morphology. Nuchal skin fold: Normal at less than 6 mm between 14-21 weeks gestational age. Face: Facial profile is normal. Nose and lips have a normal sonographic appearance. A subtle hypoechoic line is noted on some images at the upper lip, the significance of which is unclear. Spine: No evidence for spina bifida. Heart: 4-chambered heart is present, with normal ventricular outflow tracts. Diaphragm: Diaphragm is intact. Stomach: Left-sided stomach is present. Kidneys: No hydronephrosis. Normal is less than 5 mm in 2nd trimester, less than 7 mm in 3rd trimester. Cord: 3-vessel cord has orthotopic insertion. Bladder: Normal in size. Extremities: All 4 extremities identified. IMPRESSION: 1. Single live intrauterine gestation with a composite gestational age of 21 weeks, 5 days which is concordant with dates by initial scan. 2. Estimated weight percentile of 8%. Developing microsomia cannot be excluded. 3. Questionable hypoechoic linear focus within the upper lip on some of the face images. The significance of this finding is unclear. Consider short interval follow-up to re-evaluate and exclude cleft palate. We strive to produce accurate, complete, and clear reports of imaging services. To assist us in improving patient care, this report was composed using standard report templates and voice recognition software. Therefore, it may contain abnormal punctuation, insertions and/or omissions. Occasional wrong-word or sound-alike substitutions may occur. Though we review the report and make efforts to correct it, we do recommend that the report be read carefully in proper context to recognize any text inaccuracies. Dictated by: Naima Roth M.D. on 01/05/2023 at 17:11 Approved by: Naima Roth M.D. on 01/05/2023 at 17:17
== END ==
PROVIDERS: PCP Family Medicine; Referring Provider Nurse Practitioner Obstetrics & Gynecology; Visit Provider Nurse Practitioner Obstetrics & Gynecology
DX: Z34.80 Encounter for supervision of other normal pregnancy, unspecified trimester (principal); Z3A.21 21 weeks gestation of pregnancy
CPT/HCPCS: 76811

== ENCOUNTER → 2023-02-05 08:39 | Outpatient (CLI) | payer OTHER, MEDICAID, SELFPAY ==
--- NOTE | 2023-02-05 | DI.US.S_ITS ---
PROCEDURE: US OB FOLLOW UP INDICATIONS: FOLLOW UP ANATOMY SCAN OUTSIDE/PRIOR DATING DATA: Last menstrual period (LMP): 07/30/2022. LMP-based estimated date of delivery (SERAFIN): 05/06/2023. First dating scan (date and location): 01/05/2023. Estimated date of delivery (SERAFIN) from first dating scan: 05/13/2023. TECHNIQUE: Real-time scanning was performed of the fetus, with image documentation and biometric measurements. Endovaginal scanning: No COMPARISON: [facility], OB >= 14 WEEKS FETUS, 01/05/2023, 15:31. FINDINGS: General: A single living intrauterine gestation is present. Presentation: Vertex. Placenta: Placental position is anterior , without previa. Amniotic fluid index: 12.6 cm, normal range is 5-24 cm. Single deepest vertical pocket is 3.5 cm. heart rate: 155 beats per minute. Maternal cervical canal: 5.0 cm long. Normal lower limit is 2.5 cm. biometrics: Biparietal diameter: 65 mm; 26 weeks 3 days Head circumference: 244 mm; 26 weeks 4 days Abdominal circumference: 221 mm; 26 weeks 4 days Femur length: 49 mm; 26 weeks 5 days Clinically estimated gestational age: 27 weeks 1 day Composite gestational age from present scan: 26 weeks 4 days Estimated weight and percentile: 954 g, which is at the 19th percentile for gestational age Anatomic survey: Face/lip/orbits, left and right ventricular outflow tracts, chest/diaphragm, urinary bladder/pelvis, bilateral upper and lower extremities are visualized. IMPRESSION: 1. Single living intrauterine gestation. 2. Normal limited survey of anatomy as above. 3. Estimated weight is at the 19th percentile for gestational age. We strive to produce accurate, complete, and clear reports of imaging services. To assist us in improving patient care, this report was composed using standard report templates and voice recognition software. Therefore, it may contain abnormal punctuation, insertions and/or omissions. Occasional wrong-word or sound-alike substitutions may occur. Though we review the report and make efforts to correct it, we do recommend that the report be read carefully in proper context to recognize any text inaccuracies. Dictated by: Mery Guy M.D. on 02/05/2023 at 9:53 Approved by: Mery Guy M.D. on 02/05/2023 at 16:40
== END ==
PROVIDERS: PCP Family Medicine; Referring Provider Advanced Practice Midwife; Visit Provider Advanced Practice Midwife
DX: Z36.2 Encounter for other antenatal screening follow-up (principal); Z3A.26 26 weeks gestation of pregnancy
CPT/HCPCS: 76816

== ENCOUNTER → 2023-02-08 07:42 | Outpatient (CLI) | payer OTHER, MEDICAID, SELFPAY ==
[2023-02-08 08:58] LABS: Hematocrit 35.5 % (36-46); Hemoglobin 12.1 g/dL (12.0-16.0); Mean Corpuscular HGB Conc 34.1 % (30-36); Platelet Count 193 X10^3/uL (150-400); Red Cell Distribution Width 13.2 % (11.6-14.8); White Blood Cell Count 10.4 X10^3/uL (4.5-11.0)
[2023-02-08 09:28] LABS: Glucose Fasting 85 mg/dL (70-100)
[2023-02-08 09:50] LABS: Free T3, Triiodothyronine Free 3.57 pg/mL (2.77-5.27)
[2023-02-08 10:04] LABS: Thyroid Stimulating Hormone 0.513 uIU/mL (0.47-4.68)
[2023-02-08 10:32] LABS: Glucose Tol Interpretation INTERPRETATION
[2023-02-08 11:19] LABS: Glucose 2 Hour 113 mg/dL (70-140)
[2023-02-08 12:12] LABS: Glucose 1 Hour 163 mg/dL (70-170)
[2023-02-08 18:03] LABS: Free T4, Direct Thyroxine 1.01 ng/dL (0.78-2.19)
== END ==
PROVIDERS: PCP Family Medicine; Referring Provider Nurse Practitioner Obstetrics & Gynecology; Visit Provider Nurse Practitioner Obstetrics & Gynecology
DX: Z34.90 Encounter for supervision of normal pregnancy, unspecified, unspecified trimester (principal); Z13.1 Encounter for screening for diabetes mellitus; E05.90 Thyrotoxicosis, unspecified without thyrotoxic crisis or storm; Z3A.26 26 weeks gestation of pregnancy
CPT/HCPCS: 36415; 82951; 82952; 84439; 84443; 84481; 85027

== ENCOUNTER → 2023-04-23 08:16 | Outpatient (CLI) | payer OTHER, MEDICAID, SELFPAY ==
--- NOTE | 2023-04-23 | DI.US.S_ITS ---
PROCEDURE: US OB FOLLOW UP INDICATIONS: GROWTH SCAN OUTSIDE/PRIOR DATING DATA: Last menstrual period (LMP): 07/30/2022. LMP-based estimated date of delivery (SERAFIN): 05/06/2023. First dating scan (date and location): 01/05/2023. Estimated date of delivery (SERAFIN) from first dating scan: 05/13/2023. The calculations are made using the clinical SERAFIN of 05/06/2023. TECHNIQUE: Real-time scanning was performed of the fetus, with image documentation and biometric measurements. COMPARISON: [facility], , OB FOLLOW UP, 02/05/2023, 8:52. FINDINGS: General: A single living intrauterine gestation is present. Presentation: Vertex. Placenta: Placental position is anterior, without previa. Amniotic fluid index: 12 cm, normal range is 5-24 cm. Single deepest vertical pocket is 3.6 cm. heart rate: 153 beats per minute. Maternal cervical canal: Not well seen. biometrics: Biparietal diameter: 9 cm, 36 weeks 3 days Head circumference: 32.7 cm, 37 weeks 0 days Abdominal circumference: 32.2 cm, 36 weeks 1 day Femur length: 7 cm, 36 weeks 0 days Clinically estimated gestational age: 38 weeks 1 day Composite gestational age from present scan: 36 weeks 3 days Estimated weight and percentile: 426 g, 18th percentile Anatomic survey: Heart: Normal ventricular outflow tracts. Kidneys: No hydronephrosis. Normal is less than 5 mm in 2nd trimester, less than 7 mm in 3rd trimester. Bladder: Distended. IMPRESSION: 1. De Oliveira living intrauterine at 36 weeks 3 days based on today's ultrasound. This is within normal limits compared to the clinical dating +/-3 weeks. Fetus is in the 18th percentile for weight. 2. Normal placenta and amniotic fluid. 3. Distended bladder. We strive to produce accurate, complete, and clear reports of imaging services. To assist us in improving patient care, this report was composed using standard report templates and voice recognition software. Therefore, it may contain abnormal punctuation, insertions and/or omissions. Occasional wrong-word or sound-alike substitutions may occur. Though we review the report and make efforts to correct it, we do recommend that the report be read carefully in proper context to recognize any text inaccuracies. Dictated by: Rafael Ndiaye M.D. on 04/23/2023 at 9:57 Approved by: Rafael Ndiaye M.D. on 04/23/2023 at 10:04
== END ==
PROVIDERS: PCP Family Medicine; Referring Provider Nurse Practitioner Obstetrics & Gynecology; Visit Provider Nurse Practitioner Obstetrics & Gynecology
DX: O26.843 Uterine size-date discrepancy, third trimester (principal); Z3A.36 36 weeks gestation of pregnancy
CPT/HCPCS: 76816

== ENCOUNTER 2023-04-27 13:44 | Inpatient (IN) | payer OTHER, MEDICAID, SELFPAY ==
--- NOTE | 2023-04-27 14:00 | PM.OBHP.1 ---
OB HPI Date/Time Date of admission: 04/27/23 Date Patient Seen: 04/27/23 Time Patient Seen: 14:00 History of Present Condition Chief complaint: labor : 3 Para: 2 Estimated Date of Delivery: 05/06/23 Estimated Gestational Age (weeks): 38.5 Narrative: Prisca Zarate is a 28 year old female at 38.5 weeks by LMP concordant with 5 week US. She received uncomplicated care with CNMs and is GBS negative. Contractions started at noon and she felt her water break at 1300, clear fluid noted. She presents with mild regular contractions and grossly ruptured, with clear fluid streaking down her leg. She desires an umedicated delivery. Her partner Remigio is supportive at bedside. History of Present care: good care, initiated at week # (9), number of visits (10) and pounds weight gain (- 11.0) Dating criteria: LMP confirmed by 1st trimester US Ultrasounds: normal 1st trimester US, normal mid trimester US and other (growth US) Obstetrical complications: none Medical complications: none Preadmission Labs Blood type: A (+) positive -: Antibody screen: negative, GBS status: negative, HBsAG: negative, HIV: negative and RPR/VDLR: negative -: Chlamydia screen: not detected and Gonorrhea screen: not detected -: Rubella: immune and Varicella: immune HCT: 35.5 HCAB: negative PAP: Normal Cell-free DNA: Negative Narrative: 2hr GTT: 85, 163, 113 Prior (ies) History: 08/2019 - NSVB; 02/2021 - NSVB Evaluation Evaluation Baseline heart rate: 135 Variability: Moderate (11-25) monitor accelerations: Present Monitor Decelerations: Absent Contraction Frequency (minutes): 5 (4-7) Uterine Contraction Intensity: Mild Status: Category l Dilation (cm): 3.5 Effacement (%): 75 Dilation: 3-4 cm Effacement: 60-70% station: -3 Position of cervix: mid Consistency: soft Mcginnis score: 7 Comments: Grossly ruptured, clear PFSH Medical History Acne (~2009) Ankle pain (~2007) Anxiety (~2006) Depression (~2006) Encounter for full-term uncomplicated delivery Epigastric abdominal pain Foot pain (~2007) RENETTA (generalized anxiety disorder) GERD (gastroesophageal reflux disease) Low back pain Marijuana use Polycystic ovarian syndrome PTSD (post-traumatic stress disorder) (~2006) Vapes nicotine containing substance Surgical History Encounter for intrauterine device placement (~11/17/21) History of dental surgery Hx of tonsillectomy (~2004) Family History Father Skin cancer Hypertension Mother Hypertension Depression Sister Suicide Sister Depression Grandfather Diabetes mellitus Hypertension Depression Grandmother Cancer Diabetes mellitus Hypertension Depression Grandfather Cancer Diabetes mellitus Hypertension Grandmother Hypertension Social History marital status: unmarried,living together number of children: 1 household members: significant other and children lives independently: Yes caregiver/support person: No housing: apartment education level: high school occupational status: unemployed Smoking Status: Current every day smoker alcohol intake: never Meds Home Medications and Allergies Home Medications Medication Instructions Recorded Confirmed Type bupropion HCl 150 mg 24 hr tablet, 300 mg PO DAILY 10/03/21 04/27/23 History extended release ondansetron HCl 4 mg tablet 4 mg PO Q6H PRN Nausea 04/27/23 04/27/23 History prenat.vits,cesilia,[id number] 1 tab PO 1XD 04/27/23 04/27/23 History Allergies Allergy/AdvReac Type Severity Reaction Status Date / Time No Known Drug Allergies Allergy Verified 04/27/23 17:09 Review of Systems Review of Systems Narrative: Negative except as noted in HPI OB Exam Vital signs Blood Pressure: 117/72 Pulse Rate: 93 Respiratory Rate: 18 Temperature: 97.0 F Resp Effort & Inspection: normal respiratory effort Auscultation: clear to auscultation bilaterally Cardio Rate: regular rate Rhythm: regular rhythm Presentation: vertex Objective Labs 04/27/23 14:15 Assessment and Plan Assessment and Plan Assessment and Plan narrative: A: Term multipara Early labor SROM x1hr, clear fluid GBS negative Rh positive FHR Cat 1 P:Admit to center Expectant management Intermittent auscultation after admission NST TENS unit for pain management Reassess in 4hrs or sooner as needed
[2023-04-27 14:44] LABS: Add Manual Diff / Slide Review NO; Basophils Absolute Auto 0 /uL (0-100); Basophils Percent Auto 0.2 % (0-2); Eosinophils Absolute Auto 100 /uL (0-450); Eosinophils Percent Auto 0.6 % (2-4); Hematocrit 32.9 % (36-46); Hemoglobin 11.3 g/dL (12.0-16.0); Lymphocytes Absolute Auto 2100 /uL (1100-4500); Lymphocytes Percent Auto 18.9 % (25-40); Mean Corpuscular HGB Conc 34.4 % (30-36); Mean Corpuscular Hemoglobin 29.2 PG (26-34); Monocytes Absolute Auto 500 /uL (0-900); Monocytes Percent Auto 4.6 % (3-14); Neutrophils Absolute Auto 8400 /uL (1500-7000); Neutrophils Percent Auto 75.7 % (50-75); Platelet Count 175 X10^3/uL (150-400); Red Blood Cell Count 3.87 X10^6/uL (4.0-5.2); Red Cell Distribution Width 12.6 % (11.6-14.8); White Blood Cell Count 11.1 X10^3/uL (4.5-11.0)
[2023-04-27 14:46] VITALS: BP 117/72; PULSE 93; RESP 18; TEMP 36.1
[2023-04-27 17:06] VITALS: BP 111/72
--- NOTE | 2023-04-27 17:59 | PM.OBPNLAB ---
Date/Time Date Patient Seen: 04/27/23 Time Patient Seen: 18:00 Pain Control Pain control: tolerating well Comments: Prisca is feeling physically comfortable, frustrated that labor has slowed down. Her contractions have spaced out, not feeling them while she rests in bed. She went for a walk and after 30 minutes on her feet now is again feeling some contractions. She is feeling ready for augmentation. VS: BP: 111/65 mmHg HR: 87 bpm T: 36.5C Pelvic Exam Amniotic membrane status: Leaking (clear) Comments: CE deferred Contractions Contraction frequency (min): 7 (irregular) Contraction duration (min): 1 Contraction pattern: Irregular Contraction intensity: Mild Status Heart Rate Baseline: 135 (by IA) Comments: FHR reassuring by IA Assessment and Plan Assessment: other (early labor) Plan: begin patient augmentation Comments: A: term multipara early labor SROM x6 hrs, clear fluid GBS negative FHR reassuring P: Pitocin augmentation per protocol Continuous EFM Reassess after 2hrs of adequate contractions, or sooner as needed
[2023-04-27] MEDS: OXYTOCIN PREMIX 30 UNIT/500 ML PLAST..BAG IV (18:34)
[2023-04-27] MEDS: LACTATED RINGERS 1,000 ML 100 ML IV ×2 (18:34→22:15)
--- NOTE | 2023-04-27 22:41 | PM.AN.REGBLK ---
Regional Block Pre-procedure PMH/ROS narrative: , healthy uncomplicated , A+, antibody negative. Had LOLLY with first two deliveries w/o complications. PSH/Anesthesia history narrative: See pre/post anesthesia form. Exam narrative: See pre/post anesthesia form ASA Class: II Labs: Hct 32.9 % (36-46) L 04/27/23 14:15 Plt Count 175 X10^3/uL (150-400) 04/27/23 14:15 Medications: Current Medications Generic Name Dose Route Start Last Admin Trade Name Freq PRN Reason Stop Dose Admin Bupropion HCl 300 mg 04/28/23 09:00 Bupropion Xl 150 Mg Tab PO DAILY JOHN Calcium Carbonate 1,000 mg 04/27/23 13:56 Calcium Carbonate 500 Mg Tab PO Q4HR PRN Dyspepsia Carboprost Tromethamine 250 mcg 04/27/23 13:56 Carboprost 250 Mcg/Ml Ampul IM Q90M PRN Bleeding Diphenhydramine HCl 25 mg 04/27/23 22:36 Diphenhydramine 50 Mg/Ml Vial IV Q10M PRN Pruritis Ephedrine Sulfate 10 mg 04/27/23 22:36 Ephedrine 50 Mg/Ml Vial IV Q5M PRN Blood pressure decrease more than 20% of baseline. Fentanyl 100 mcg 04/27/23 13:56 Fentanyl 100 Mcg/2 Ml Inj IV Q1H PRN Pain, Severe (7-10) Oxytocin/Lactated Ringer's 30 unit in 500 mls @ 200 mls/hr 04/27/23 13:56 Oxytocin Premix IV CONT PRN Bleeding Protocol Tranexamic Acid 1,000 mg/ 100 mls @ 200 mls/hr 04/27/23 13:56 Sodium Chloride IV NOW PRN Bleeding Lactated Ringer's 1,000 mls @ 100 mls/hr 04/27/23 14:00 04/27/23 22:15 Lactated Ringers IV 100 mls/hr CONT JOHN Administration Oxytocin/Lactated Ringer's 30 unit in 500 mls @ 2 mls/hr 04/27/23 17:58 04/27/23 18:34 Oxytocin Premix IV 2 milliunit/min TITRATE JOHN 2 mls/hr Administration Protocol 2 MILLIUNIT/MIN FENT 2MCG/ML BUPIV 0.1% EPI 200 mcg in 100 mls @ 8 mls/hr 04/27/23 22:26 Fentanyl/Bupiv/Ns 2mcg/Ml - 0.1% EPIDURAL CONT JOHN Lidocaine HCl 20 ml 04/27/23 13:56 Lidocaine 1% 20 Ml INJ INTRA-OP PRN Post Delivery Methylergonovine Maleate 0.2 mg 04/27/23 13:56 Methylergonovine 0.2 Mg Tablet PO Q6HR PRN Heavy Bleeding Methylergonovine Maleate 0.2 mg 04/27/23 13:56 Methylergonovine 0.2 Mg/Ml Vial IM NOW PRN Bleeding Misoprostol 800 mcg 04/27/23 13:56 Misoprostol 200 Mcg Tablet MI NOW PRN Bleeding Misoprostol 400 mcg 04/27/23 13:56 Misoprostol 200 Mcg Tablet SL NOW PRN Bleeding Nalbuphine HCl 2.5 mg 04/27/23 22:36 Nalbuphine 20 Mg/Ml Ampul IV Q10M PRN Pruritis Naloxone HCl 0.2 mg 04/27/23 13:56 Naloxone 0.4 Mg/Ml Vial IV Q2MIN PRN Opiate Reversal Ondansetron HCl 4 mg 04/27/23 13:56 Ondansetron 4 Mg/2 Ml Inj IV Q4HR PRN Nausea And Vomiting Oxytocin 10 unit 04/27/23 13:56 Oxytocin 10 Unit/Ml Vial IM NOW PRN Bleeding Allergies: Allergies Allergy/AdvReac Type Severity Reaction Status Date / Time No Known Drug Allergies Allergy Verified 04/27/23 17:09 Procedure Insertion date: 04/27/23 Insertion time: 22:07 Prep/Local: betadine x3 Interspace: L3-4 Patient position: sitting Needle: 18 gauge [place] Loss of resistance with: saline NAWAF at (cm): 8 Catheter placed at SKIN (cm): 13 Catheter in SPACE (cm): 8 Sensory level: t10-L1 Insertion: No CSF, No Blood, No Paresthesia with insertion, No Paresthesia with injection and No Test dose reaction Initial Medications TEST DOSE time: 22:08 BOLUS DOSE time: 22:16 BOLUS DOSE (mL): 10 BOLUS DOSE med: 0.125% bupivacaine with fentanyl 10 mcg/mL Infusion INFUSION: 0.125% bupivacaine and with fentanyl 2 mcg/mL Initial rate (mL/hr): 8 Subsequent interventions: With initial placement : pain 10/10 prior to LOLLY, reassess following, 08/25 described at 'pressure' only. dermatone adequate, VSS. Post-procedure Anesthesia time START: 21:50 Anesthesia time END: 05:00
[2023-04-27] MEDS: ONDANSETRON 4 MG/2 ML INJ IV (23:48)
--- NOTE | 2023-04-28 03:41 | P.PCNOB_ITS ---
Labor & Delivery Delivery date: 04/28/23 Intrapartal Events: None Delivery augmentation: pitocin Delivery monitor: external FHT Route of delivery: Episiotomy description: None L&D Laceration Description: None Estimated blood loss (mL): 25 Anesthesia Type: Epidural Narrative: Prisca's labor progressed slowly and was augmented with pitocin (max dose 18mu/min). She had an epidural for anesthesia and was ruptured for <15 hrs, with clear fluid and no signs of infection. FHR was primarily Cat 1 by continuous EFM until variable decelerations begain immediately prior to second stage. At 0255 she felt increasing rectal pressure and an urge to push and was found to be C/C/+2. Over two contractions and good maternal pushing effort, NSVB of vigorous baby girl in STEPHANIE position over an intact perineum. [place] was sommersaulted through a single loose nuchal cord and the shoulders delivered easily. placed on maternal abdomen for drying and skin to skin. Remaining 30 units of pitocin in 500mL LR was increased to 250mL/hr for AMTSL. Cord double clamped by CNM and cut by DAMIEN Flood after cessation of pulsation. Cord blood sample was collected. Gentle cord traction and single maternal push resulted in spontaneous, [place], delivery of apparently intact placenta, membranes and 3 vessel cord. Fundus immediately firm, midline, u-2, scant bleeding. Perineum and vagina intact on inspection. QBL 25. Both mom and baby skin to skin and stable when I left the room. Baby 1: gender: Female Presentation: vertex Position: Right Occiput Anterior Placenta delivery description: Spontaneous Cord Vessel Description: 3 Vessels and Nuchal Cord score (1 min): 8 score (5 min): 9 weight: 2.827 kg Plan for aftercare: Routine care
--- NOTE | 2023-04-28 04:01 | PM.OBPNLAB ---
Date/Time Date Patient Seen: 04/27/23 Time Patient Seen: 23:56 Pain Control Pain control: tolerating well and epidural Comments: Prisca is resting on her back in bed with her epidural working well. She is unable to sleep because of constant rectal pressure and she is worried that it may be time to push. She is requesting a cervical exam. VS: BP: 112/61 mmHg HR: 61 bpm Sp02: 98% T: 36.6 Pelvic Exam Dilation (cm): 5 Effacement (%): 90 station: -2 Amniotic membrane status: Leaking (clear) Contractions Monitor mode: External Pitocin rate (mU/min): 10 Contraction frequency (min): 3 (irregular) Contraction duration (min): 1 Contraction pattern: Regular Contraction intensity: Moderate Status status: Category l Heart Rate Baseline: 130 Monitor Accelerations: Present Monitor Decelerations: Absent Monitor Variability: Moderate Assessment and Plan Assessment: induction ongoing Comments: A: Term multipara Early labor, with augmentation No signs of infection Effective anesthesia FHR Cat 1 P: Continue Pitocin per protocol Frequent position changes Reassess in 4 hours or sooner as needed
[2023-04-28] MEDS: IBUPROFEN 600 MG TABLET PO ×3 (07:07→20:21)
[2023-04-28] MEDS: buPROPion XL 150 MG TAB 300 MG PO (12:31)
[2023-04-28] MEDS: ACETAMINOPHEN 325 MG TABLET 650 MG PO ×2 (12:32→19:03)
[2023-04-29] MEDS: ACETAMINOPHEN 325 MG TABLET 650 MG PO (04:13)
[2023-04-29] MEDS: IBUPROFEN 600 MG TABLET PO (04:13)
--- NOTE | 2023-04-29 07:08 | P.DS_ITS ---
Discharge Providers Provider Date of admission: 04/27/23 13:44 Discharge Date: 04/29/23 Primary care physician: Norberto Pisano DO Consults: 04/29/23 03:36 Consult to Systems Security Analyst Routine Comment: Discharge provider: Aye Evans CNM Summary Hospital Course Date Patient Seen: 04/29/23 Time Patient Seen: 07:09 Diagnoses: Z34.89, o80 Hospital Course: PPD1: NSVB over intact perineum. Ambulating, voiding and independently. Tolerating a normal diet. Bleeding is light, without clots. Partner Remigio is involved and supportive. Both parents looking forward to going home today. Peripartum Data Infant Delivery Method: Natural Vaginal Laceration Description: None Episiotomy description: None 1: Gender: Female Disposition of : home Discharge Diagnosis (1) Encounter for full-term uncomplicated delivery: Status: Acute Problem Details: Routine course Status at Discharge Cognitive/behavioral status at discharge: at baseline, oriented Functional status at discharge: independent ambulation Overall status at discharge: patient is progressing back to baseline Time Spent with Patient Time attestation: Total time spent providing and/or coordinating discharge services: Objective Labs 04/27/23 14:15 Exam Vital Signs (past 8 hours): BP: 106/64 mmHg P: 80bpm RR: 16/min T: 98F Temporal Other: Fundus firm, midline, u-1 Lochia small, rubra Perineum intact, minimal edema Discharge Plan Discharge Plan Patient Disposition: Home Discharge orders & Medications Prescriptions: New ibuprofen 600 mg Tablet 600 mg PO Q6HR PRN (Reason: Pain, Mild (1-3)) 14 Days Qty: 40 0RF Continued bupropion HCl 150 mg tablet extended release 24 hr 300 mg PO DAILY Patient Comments: Take 1 tablet By Mouth every morning Discontinued ondansetron HCl [Zofran] 4 mg Tablet 4 mg PO Q6H PRN (Reason: Nausea) Vitamin Tablet 1 tab PO 1XD Follow up/Referrals: Aye Evans CNM [Advanced Manager Mobile] - 2 Weeks (2 weeks PHONE CALL: Wednesday05/10/23 at 9:15am 6 week IN PERSON: Wednesday06/07/23 at 1:15pm ) Norberto Pisano DO [Primary Care Provider] - Diet/Activity/Treatments Diet: Diet as Tolerated and Regular Diet comment: Hydration, high fiber Activity: Rest in and around bed for 2 weeks, pelvic rest for 6 weeks Skin/Wound/Dressing Care Skin care: Gentle Report to your healthcare provider any signs of infection, such as:: chills, fever, increased pain, unusual drainage and unusual redness Visit Report/Discharge Packet Instructions: DI for Depression Stand Alone Forms: Patient Portal/API Discharge Data Primary Care Provider: Norberto Pisano
[2023-04-29] MEDS: buPROPion XL 150 MG TAB 300 MG PO (08:51)
[2023-04-29 08:57] VITALS: BP 104/67; PULSE 66; RESP 18; TEMP 36.9
== END 2023-04-29 09:06 | disposition home or self-care (01) | DRG 955 ==
PROVIDERS: Admitting Provider Nurse Practitioner Obstetrics & Gynecology; PCP Family Medicine; Referring Provider Nurse Practitioner Obstetrics & Gynecology; Visit Provider Nurse Practitioner Obstetrics & Gynecology
DX: O80 Encounter for full-term uncomplicated delivery (principal); Z3A.38 38 weeks gestation of pregnancy
CPT/HCPCS: 59050; 85025; 86850; 86900; 86901; G0379; J2405; J2590